=== PATIENT | female | born 1950 | race Caucasian/White ===

== ENCOUNTER 2016-10-10 06:11 | Day surgery (SDC) | payer MEDICARE, MEDICAID ==
[2016-10-10] VITALS (9 sets, daily range): BP systolic 111–135; BP diastolic 0–91; PULSE 68–78; RESP 6–15; O2SAT 98–100
[~2016-10-10] VITALS: Ht 176.5 cm; Wt 46.4 kg
[~2016-10-10 06:11] MED LIST: AMT25T PO; ASPI-973 PO; BENEDRYL PO; BENZ9GEL MM; BISA10SU61 RC; Botulinum Toxin Type-A 100 unit Inj XX ONE; Botulinum Toxin Type-A Inj 200 unit Inj XX ONE; CALC-83 PO; CALC117719 PO; CHOL100045 PO; CIPR-232 PO; DOCU250C2 PO; DULCOLAX PO; ESTR0.5T PO; FOSF3PAC PO; HYD5C TP; HYDR-4003 PO; HYDR25CA PO; LACT1TAB13 PO; LEVE100014 PO; LIDO20SO MM; LISI-571 PO; LORA10CA PO; Levofloxacin 500 mg/100 mL D5W IV ONE; MAG355OR31 PO; MAGN400O4 PO; MULT-620 PO; MYCC TP; NA P133E23 RC; NYST1POW23 MC; PHEN-683 PO; POLY17PO6 PO; SENN-133 PO
[2016-10-10] MEDS ORDERED: fentaNYL-PF 50 mCg/mL 2 mL Inj ONE (06:12)
[2016-10-10] MEDS ORDERED: Dexamethasone 4 mg/mL Inj ONE (06:12)
[2016-10-10] MEDS ORDERED: Propofol 10,000 mCg/mL 20 mL Inj ONE (06:12)
[2016-10-10] MEDS: Lactated Ringer's 1,000 ML IV SCH ×3 (07:02→09:57)
--- NOTE | 2016-10-10 07:02 | PCM.HPANE ---
Patient Data Surgeon Admitting Provider: Attending Provider:Kristan Keller MD Primary Care Physician:Lanie Burgos MD Other Provider:Marquita Booker Anesthesia Reason for Visit Bladder Spasms, Bladder Stone Ht/WT & BMI Height (Feet): 5 Height (Inches): 9.5 Weight (Kilograms): 46.4 Body Mass Index 14.00 Allergies Coded Allergies: latex (Verified Allergy, Severe, contact dermatitis, 10/08/16) Penicillins (Verified Allergy, Unknown, UNKNOWN, 10/08/16) Sulfa (Sulfonamide Antibiotics) (Verified Allergy, Unknown, UNKNOWN, ) clindamycin (Verified Allergy, Unknown, UNKNOWN, 10/08/16) metronidazole (Verified Allergy, Unknown, UNKNOWN, 10/08/16) morphine (Verified Allergy, Unknown, UNKNOWN, 10/08/16) propoxyphene (Verified Allergy, Unknown, UNKNOWN, 10/08/16) Past Anesthesia History Anesthesia History: Denies:: Anesthesia Reactions, Malignant Hyperthermia Diabetes History Hx Diabetes?: No MRSA MRSA: No Medications Blood Thinner: Aspirin Hypertension Medication: No Home Meds Incl Beta Ravi: No Reported Medications Ciprofloxacin (Cipro)250 Mg Ztdzso886 Mg PO BID Ref 0 X 7 DAYS (START 10/07/16) 10/09/16 Fosfomycin Tromethamine (Monurol)3 Gm Packet3 Gm PO WEEKLY X 6 WEEKS (INSTRUCTIONS TO SNF WERE TO GIVE ON 10/09/16 & 10/12/16 WELL) 10/08/16 Polyethylene Glycol 3350 (Miralax)17 Gm Powd.pack17 Gm PO DAILY PRN PRN 10/08/16 Hydrocortisone 120 Applic/30 Gm Cr1 Applic TP BID PRN PRN 0.5-1% 10/08/16 Lactobacillus Acidophilus (Acidophilus)1 Each Tablet1 Each PO BID PRN PRN 10/08/16 Sennosides (Senna)8.6 Mg Eomirc90.2 Mg PO DAILY PRN PRN 10/08/16 Lisinopril 5 Mg Tablet5 Mg PO DAILY #30 TABLET Ref 0 10/08/16 Lidocaine HCl (Lidocaine HCl Viscous)20 Mg/1 Ml Solution5 Ml MM Q3H PRN PRN 10/08/16 Calcium Carbonate (Tums Ultra Strength)1,177 Mg Tab.schx055 Mg PO Q4H PRN PRN 1/25/17 Nystatin 60 Applic/15 Gm Cream1 Applic TP BID PRN PRN 10/08/16 Nystatin 1 Each Powder.ea.1 Each MC DAILY PRN PRN 10/08/16 [Benedryl] No Conflict Check25 Mg PO Q4H PRN PRN 10/08/16 Docusate Sodium 250 Mg Wfqhhbl427 Mg PO BID PRN For Constipation Ref 0 10/08/16 Estradiol 0.5 Mg Tablet0.5 Mg PO DAILY 10/08/16 Na Phos,M-B/Na Phos,Di-Ba (Fleet Enema)133 Ml Sdgsl302 Ml RC DAILY PRN PRN 10/08/16 Aspirin 81 Mg Emxrvr68 Mg PO DAILY Ref 0 10/08/16 Loratadine (Claritin)10 Mg Yulwclc19 Mg PO DAILY Ref 0 10/08/16 Calcium Carb/Vit D3/Minerals (Calcium 600+D Plus Minerals Tb)1 Each Tablet1 Each PO DAILY 10/08/16 Cholecalciferol (Vitamin D3) (Vitamin D)1,000 Unit Capsule1,000 Unit PO DAILY # 1 BOTTLE Ref 0 10/08/16 Levetiracetam (Keppra)1,000 Mg Tablet1,000 Mg PO BID 10/08/16 Bisacodyl (Dulcolax Rectal)10 Mg Supp.rect10 Mg RC DAILY PRN For Constipation 30 Days Ref 0 10/08/16 [Dulcolax ] No Conflict Check1 Tab PO DAILY PRN PRN 10/08/16 Magnesium Hydroxide (Milk of Magnesia)400 Mg/5 Ml Oral.susp30 Ml PO DAILY PRN PRN 10/08/16 Multivitamin with Minerals (Totalday Multiple)1 Each Tablet.er1 Each PO DAILY 10/08/16 Phenazopyridine (Pyridium)100 Mg Fanzzm813 Mg PO TID For Painful Urination Ref 0 10/08/16 Hydroxyzine Pamoate (Vistaril)25 Mg Dcdgwdz26 Mg PO Q4H PRN BLADDER SPASMS Ref 0 10/08/16 Benzocaine (Anbesol)9 Gm Gel..gram.9 Gm MM Q2H PRN PRN 10/08/16 Hydrocodone-Acetaminophen 5-325 mg 1 Each Tablet2 Tablet PO DAILY PRN For Pain Ref 0 10/08/16 Amitriptyline 25 Mg Tab25 Mg PO HS Ref 0 10/08/16 Mag Hydrox/Al Hydrox/Simeth (Antacid M Liquid)355 Ml Oral.susp30 Ml PO Q6H PRN PRN 10/08/16 History History of ENT Problems?: Yes HEENT History: Positive for:: Sinus Problem (SEASONAL ALLERGIES) Hx of Heart Problems?: Yes Cardiovascular History: Positive for:: Hypertension Denies:: Heart Murmur Hx of Respiratory Problem?: No Respiratory History: Denies:: Use of C-PAP Machine Hx Neurologic Problems?: Yes Neurological History: Positive for:: Multiple Sclerosis (DX 20+ YRS AGO/ WHEELCHAIR BOUND W/ SLURRING OF SPEECH) Seizures Hx of GI Problems?: Yes Other GI Pertinent History: C/OF CONSTIPATION Hx of Problems?: Yes Genitourinary History: Positive for:: Kidney Stones (PRIOR STONES-BOTH KIDNEY & BLADDER CURRENT RT STAGHORN CALCULI) Urinary Tract Infection (HX OF UTI'S ) Other Pertinent History: LONG-STANDING USE OF INDWELLING FRAUSTO CATH S/P CYSTO 2013, CYSTO/LITHOLAPAXY 12/2014,CYSTO/STENT/STONE BASKET 02/2015 BLADDER SPASMS/BLADDER STONE=CURRENT PROBLEM Female Hx: Denies:: Currently Skin History: Denies:: History Skin Disorders? Pressure Ulcers Hx Musculoskeletal Problems?: No Hx of Psycho/Social Problems?: No Hx Surgeries?: Yes (CYSTO,CYSTO/LITHOLAPAXY,CYSTO/STENT/STONE BASKET) Hx Any Other Health Problems?: Yes Other History: Positive for:: Hospitalization Denies:: Cancer Thyroid Disease Hx Diabetes: No Have You Smoked inLast 12 mo: No Stop/Bang S-Snoring: Do You Snore Loudly: No T-Tired: feel tired, fatigued: Yes O-Obsered: Observed not breath: No P-Blood Pressure: treated: Yes B- Body Mass Index > 35 kg/m2: No A- Age over 50: Yes N- Neck Large Circumference: No G- Gender Male: No ELIZABETH Total Score: 3 ELIZABETH Risk Assessment: High Risk, =/>3 Yes ELIZABETH Category 4 OutPt Procedure: Yes Risk Assessment Category Category 1A: Patient has history of documented sleep apnea, and HAS NOT received any narcotic, sedative or anesthesia administration during this stay. Category 1B: Patient has history of documented sleep apnea, and HAS received any narcotic , sedative or anesthesia administration during this stay Category 2: Patient has SUSPECTED Obstructive Sleep Apnea, and HAS received any narcotic , sedative or anesthesia administration during this stay. Category 3: Patient has SUSPECTED Obstructive Sleep Apnea and HAS NOT received narcotic, sedative or anesthesia administration during this stay. Category 4: Outpatient in Procedural Areas with known sleep apnea or who screen positive for High Risk via the STOP/BANG questionnaire. Exam Exam Vital Signs Vital Signs Date Time Temp Pulse Resp B/P Pulse Ox O2 Delivery O2 Flow Rate FiO2 10/10/16 06:40 35.4 78 15 135/59 98 Room Air General Appearance: Alert, Oriented X3, Cooperative, No Acute Distress HEENT/AIRWAY: MP 1 Lungs: Normal Air Movement Heart: Exam Unremarkable Plan Impression Patient chart reviewed, patient interviewed and anesthestic plan with risks, benefits, and alternatives discussed, and informed consent obtained. NPO Status: 10/09/16 ASA Physical Status: ASA3 Severe Disease (multiple sclerosis, seizure d/o) Anesthetic Plan: GA Bene/Risks/Altern/Consents: Yes HP Complete Prior to Induction: Yes Eliseo Salazar MD Oct 10, 2016 07:02
[2016-10-10] MEDS ORDERED: Belladonna Alk-Opium 60 mg Rectal Suppository RECTAL ONE (07:04)
[2016-10-10] MEDS ORDERED: levoFLOXacin 500 mg/100 mL D5W Premix IV ONE (07:32)
[2016-10-10] MEDS ORDERED: Botulinum Toxin Type-A 100 unit Inj IM ONE (08:14)
[2016-10-10] MEDS ORDERED: MetoCLOpramide 5 mg/mL 2 mL Inj IVPUSH PRN (08:45)
[2016-10-10] MEDS ORDERED: Albuterol-Ipratropium 3 mL Inhalation Solution NEB PRN (08:45)
[2016-10-10] MEDS ORDERED: Lactated Ringer's 500 ML IV PRN (08:45)
[2016-10-10] MEDS ORDERED: EPHEDrine Sulfate 50 mg/mL Inj IVPUSH PRN (08:45)
[2016-10-10] MEDS ORDERED: Ondansetron 2 mg/mL 2 mL Inj IVPUSH PRN (08:45)
[2016-10-10] MEDS ORDERED: fentaNYL-PF 50 mCg/mL 2 mL Inj IVPUSH PRN (08:45)
[2016-10-10] MEDS ORDERED: Lactated Ringer's 1,000 ML IV SCH (08:45)
[2016-10-10] MEDS ORDERED: Phenylephrine 10,000 mCg/mL Inj IVPUSH PRN (08:45)
[2016-10-10] MEDS ORDERED: Dexamethasone 4 mg/mL Inj IVPUSH PRN (08:45)
[2016-10-10] MEDS ORDERED: Gentamicin 40 mg/mL 2 mL Inj IRRIGATION ONE ×2 (08:56→09:16)
[2016-10-10] MEDS ORDERED: HYDROcodone-APAP 5-325 mg Tablet PO PRN (09:40)
[2016-10-10] MEDS ORDERED: Ondansetron 8 mg ODT Tablet PO PRN (09:40)
[2016-10-10] MEDS ORDERED: Belladonna Alk-Opium 60 mg Rectal Suppository RECTAL PRN (09:40)
--- NOTE | 2016-10-10 10:22 | PCM.ANEP1 ---
Post Anesthesia Phase 1 PACU Phase 1 Assessment Vital Signs Vital Signs Date Time Temp Pulse Resp B/P Pulse Ox O2 Delivery O2 Flow Rate FiO2 10/10/16 10:09 69 10 113/68 100 Room Air 10/10/16 10:02 68 8 114/68 100 Room Air 10/10/16 09:55 76 8 119/0 100 Room Air 10/10/16 09:50 71 8 127/91 100 Room Air 10/10/16 09:45 75 8 111/51 99 Room Air 10/10/16 09:40 73 6 125/51 98 Room Air 10/10/16 09:35 36.3 74 7 128/45 99 Room Air 10/10/16 06:40 35.4 78 15 135/59 98 Room Air Anesthetic Administered: GA Level of Alertness: Awake, talking JAY's with Equal Strength: Yes Pain: No Nausea or Vomiting: No Oxygen Delivery: Room Air Lungs: Normal Air Movement Eliseo Salazar MD Oct 10, 2016 10:22
--- NOTE | 2016-10-10 10:23 | PCM.ANEP2 ---
Post Anesthesia Evaluation ASA/CMS Post Anesthesia VS in Patient's Normal Range?: Yes Resp Stable; Airway Patent?: Yes CV Function & Hydration Stable: Yes Mental Status Recovered?: Yes Pain control Satisfactory?: Yes N/V Control Satisfactory?: Yes Eliseo Salazar MD Oct 10, 2016 10:23
--- NOTE | 2016-10-12 00:17 | OP ---
[address] [address] OPERATIVE REPORT PATIENT: ZAFAR NUNEZ : 1950 MR#: [id number] ADMIT: 10/10/2016 JOB ID: [id number] DATE OF SURGERY: 10/10/2016 PREOPERATIVE DIAGNOSIS(ES): 1. Bladder stone. 2. Neurogenic bladder with spasticity. 3. Recurrent urinary tract infection. POSTOPERATIVE DIAGNOSIS(ES): 1. Bladder stone. 2. Neurogenic bladder with spasticity. 3. Recurrent urinary tract infection. PROCEDURE: 1 Cystolitholapaxy 2 cm stone as well as 2 Botox injection and 3 gentamicin bladder installation. SURGEON: Kristan Keller MD INDICATIONS: The patient is a 66-year-old woman with longstanding history of severe progressive MS, immobile, recurrent urinary tract infections, bladder stones, nephrolithiasis, neurogenic bladder and bladder stone, found once again to have recurrent bladder stone as well as ongoing bladder spasticity despite full dose anticholinergic therapy, elective Botox as well as cystolitholapaxy. PROCEDURE IN DETAIL: After appropriate informed consent was obtained, the patient was brought to the operating room. She received IV antibiotics culture specific prior to onset of the procedure. She had been on oral antibiotics as well, culture directed. SCDs were placed. Adequate general anesthesia was induced. She was carefully placed in dorsal lithotomy position. All pressure points carefully padded. Cleaned, prepped, and draped in the usual sterile fashion. Rigid scope was introduced in the patient's bladder. The bladder stone itself was identified. We used the 25-Czech sheath. We were able to use the mechanical lithotrite to break this up. We irrigated the pieces out with the SupportLocal evacuator. This was approximately a 2 cm stone in greatest dimension. Once this was accomplished, we used 200 units of Botox in 20 mL of sterile normal saline which were injected, scattered easily throughout the bladder in 1 mL aliquots. There was mild hematuria. The bladder itself was irrigated out copiously with antibiotic solution with gentamicin which was culture specific directed. Gentamicin was also instilled at the termination of the procedure and darke clamped briefly to allow to dwell. An 18-Czech, latex-free catheter was replaced. The patient tolerated the procedure well and was returned to the one-day surgery area prior to discharge back to her assisted. [facility]
[2016-11-18] MEDS ORDERED: LACT1CAP13 PO (15:16)
== END 2016-10-10 23:59 | disposition home or self-care (01) ==
LOC: SAS 06:11
PROVIDERS: ATTEND Urology
DX: N21.0 Calculus in bladder (principal); N31.9 Neuromuscular dysfunction of bladder, unspecified; N32.89 Other specified disorders of bladder; G35 Multiple sclerosis; N39.0 Urinary tract infection, site not specified; Z99.3 Dependence on wheelchair; Z87.442 Personal history of urinary calculi; N39.41 Urge incontinence; R33.9 Retention of urine, unspecified; N20.0 Calculus of kidney; Z79.82 Long term (current) use of aspirin
CPT/HCPCS: 51700; 52287; 52317; J0585; J1100; J1580; J7120

== ENCOUNTER 2016-11-06 08:56 | Day surgery (SDC) | payer MEDICARE, MEDICAID ==
[~2016-11-06] VITALS: Ht 165.1 cm; Wt 47.7 kg
[2016-11-06] VITALS (8 sets, daily range): BP systolic 95–118; BP diastolic 55–75; PULSE 66–79; RESP 13–18; O2SAT 97–100
[~2016-11-06 08:56] MED LIST changes: -Botulinum Toxin Type-A 100 unit Inj XX ONE; -Botulinum Toxin Type-A Inj 200 unit Inj XX ONE
[2016-11-06] MEDS ORDERED: Propofol 10,000 mCg/mL 20 mL Inj ONE (08:57)
[2016-11-06] MEDS ORDERED: Phenylephrine/NS 100 mCg/mL 10 mL Syringe IVPUSH ONE (08:57)
[2016-11-06] MEDS ORDERED: fentaNYL-PF 50 mCg/mL 2 mL Inj ONE (08:57)
[2016-11-06] MEDS ORDERED: Dexamethasone 4 mg/mL Inj ONE (08:57)
[2016-11-06] MEDS ORDERED: Ondansetron 2 mg/mL 2 mL Inj ONE (08:57)
[2016-11-06] MEDS: Lactated Ringer's 1,000 ML IV SCH ×2 (09:01→10:45)
--- NOTE | 2016-11-06 10:16 | PCM.HPANE ---
Patient Data Date of Service: Nov 06, 2016 Surgeon Admitting Provider: Attending Provider:Donna Springer MD Primary Care Physician:Lanie Burgos MD Other Provider:Marquita Booker Anesthesia Reason for Visit Right Kidney Stone Ht/WT & BMI Height (Feet): 5 Height (Inches): 5 Height (Centimeters): 165.1 Weight (Kilograms): 47.7 Body Mass Index 17.00 Allergies Coded Allergies: latex (Verified Allergy, Severe, contact dermatitis, 10/08/16) Penicillins (Verified Allergy, Unknown, UNKNOWN, 10/08/16) Sulfa (Sulfonamide Antibiotics) (Verified Allergy, Unknown, UNKNOWN, ) clindamycin (Verified Allergy, Unknown, UNKNOWN, 10/08/16) metronidazole (Verified Allergy, Unknown, UNKNOWN, 10/08/16) morphine (Verified Allergy, Unknown, UNKNOWN, 10/08/16) propoxyphene (Verified Allergy, Unknown, UNKNOWN, 10/08/16) Past Anesthesia History Anesthesia History: Denies:: Anesthesia Reactions, Malignant Hyperthermia Diabetes History Hx Diabetes?: No MRSA MRSA: No Medications Blood Thinner: Aspirin Home Meds Incl Beta Ravi: No Reported Medications Ciprofloxacin (Cipro)250 Mg Mqndmi736 Mg PO BID Ref 0 X 7 DAYS (START 10/07/16) 10/09/16 Fosfomycin Tromethamine (Monurol)3 Gm Packet3 Gm PO WEEKLY X 6 WEEKS (INSTRUCTIONS TO SNF WERE TO GIVE ON 10/09/16 & 10/12/16 WELL) 10/08/16 Polyethylene Glycol 3350 (Miralax)17 Gm Powd.pack17 Gm PO DAILY PRN PRN 10/08/16 Hydrocortisone 120 Applic/30 Gm Cr1 Applic TP BID PRN PRN 0.5-1% 10/08/16 Lactobacillus Acidophilus (Acidophilus)1 Each Tablet1 Each PO BID PRN PRN 10/08/16 Sennosides (Senna)8.6 Mg Asfjzv89.2 Mg PO DAILY PRN PRN 10/08/16 Lisinopril 5 Mg Tablet5 Mg PO DAILY #30 TABLET Ref 0 10/08/16 Lidocaine HCl (Lidocaine HCl Viscous)20 Mg/1 Ml Solution5 Ml MM Q3H PRN PRN 10/08/16 Calcium Carbonate (Tums Ultra Strength)1,177 Mg Tab.thrq072 Mg PO Q4H PRN PRN 10/08/16 Nystatin 60 Applic/15 Gm Cream1 Applic TP BID PRN PRN 10/08/16 Nystatin 1 Each Powder.ea.1 Each MC DAILY PRN PRN 10/08/16 [Benedryl] No Conflict Check25 Mg PO Q4H PRN PRN 10/08/16 Docusate Sodium 250 Mg Cnxbkvq768 Mg PO BID PRN For Constipation Ref 0 10/08/16 Estradiol 0.5 Mg Tablet0.5 Mg PO DAILY 10/08/16 Na Phos,M-B/Na Phos,Di-Ba (Fleet Enema)133 Ml Ekptt402 Ml RC DAILY PRN PRN 10/08/16 Aspirin 81 Mg Yyzlqa98 Mg PO DAILY Ref 0 10/08/16 Loratadine (Claritin)10 Mg Brjfshm86 Mg PO DAILY Ref 0 10/08/16 Calcium Carb/Vit D3/Minerals (Calcium 600+D Plus Minerals Tb)1 Each Tablet1 Each PO DAILY 10/08/16 Cholecalciferol (Vitamin D3) (Vitamin D)1,000 Unit Capsule1,000 Unit PO DAILY # 1 BOTTLE Ref 0 10/08/16 Levetiracetam (Keppra)1,000 Mg Tablet1,000 Mg PO BID 10/08/16 Bisacodyl (Dulcolax Rectal)10 Mg Supp.rect10 Mg RC DAILY PRN For Constipation 30 Days Ref 0 10/08/16 [Dulcolax ] No Conflict Check1 Tab PO DAILY PRN PRN 10/08/16 Magnesium Hydroxide (Milk of Magnesia)400 Mg/5 Ml Oral.susp30 Ml PO DAILY PRN PRN 10/08/16 Multivitamin with Minerals (Totalday Multiple)1 Each Tablet.er1 Each PO DAILY 10/08/16 Phenazopyridine (Pyridium)100 Mg Kjxdje495 Mg PO TID For Painful Urination Ref 0 10/08/16 Hydroxyzine Pamoate (Vistaril)25 Mg Aycwvkg24 Mg PO Q4H PRN BLADDER SPASMS Ref 0 10/08/16 Benzocaine (Anbesol)9 Gm Gel..gram.9 Gm MM Q2H PRN PRN 10/08/16 Hydrocodone-Acetaminophen 5-325 mg 1 Each Tablet2 Tablet PO DAILY PRN For Pain Ref 0 10/08/16 Amitriptyline 25 Mg Tab25 Mg PO HS Ref 0 10/08/16 Mag Hydrox/Al Hydrox/Simeth (Antacid M Liquid)355 Ml Oral.susp30 Ml PO Q6H PRN PRN 10/08/16 History History of ENT Problems?: Yes HEENT History: Positive for:: Sinus Problem (SEASONAL ALLERGIES) Hx of Heart Problems?: Yes Cardiovascular History: Positive for:: Hypertension Denies:: Heart Murmur Hx of Respiratory Problem?: No Respiratory History: Denies:: Use of C-PAP Machine Hx Neurologic Problems?: Yes Neurological History: Positive for:: Multiple Sclerosis (DX 20+ YRS AGO/ WHEELCHAIR BOUND W/ SLURRING OF SPEECH) Seizures Hx of GI Problems?: Yes Hx of Problems?: Yes Genitourinary History: Positive for:: Kidney Stones (PRIOR STONES-BOTH KIDNEY & BLADDER CURRENT RT STAGHORN CALCULI) Urinary Tract Infection (HX OF UTI'S ) Female Hx: Denies:: Currently Skin History: Denies:: History Skin Disorders? Pressure Ulcers Hx Musculoskeletal Problems?: No Hx of Psycho/Social Problems?: No Hx Surgeries?: Yes (CYSTO,CYSTO/LITHOLAPAXY,CYSTO/STENT/STONE BASKET) Hx Any Other Health Problems?: Yes Other History: Positive for:: Hospitalization Denies:: Cancer Thyroid Disease Hx Diabetes: No Smoking Status: Never Smoker Have You Smoked inLast 12 mo: No Stop/Bang S-Snoring: Do You Snore Loudly: No T-Tired: feel tired, fatigued: No O-Obsered: Observed not breath: No P-Blood Pressure: treated: Yes B- Body Mass Index > 35 kg/m2: No A- Age over 50: Yes N- Neck Large Circumference: No G- Gender Male: No ELIZABETH Risk Assessment: Low Risk, <3 Yes Risk Assessment Category Category 1A: Patient has history of documented sleep apnea, and HAS NOT received any narcotic, sedative or anesthesia administration during this stay. Category 1B: Patient has history of documented sleep apnea, and HAS received any narcotic , sedative or anesthesia administration during this stay Category 2: Patient has SUSPECTED Obstructive Sleep Apnea, and HAS received any narcotic , sedative or anesthesia administration during this stay. Category 3: Patient has SUSPECTED Obstructive Sleep Apnea and HAS NOT received narcotic, sedative or anesthesia administration during this stay. Category 4: Outpatient in Procedural Areas with known sleep apnea or who screen positive for High Risk via the STOP/BANG questionnaire. Exam Exam Vital Signs Vital Signs Date Time Temp Pulse Resp B/P Pulse Ox O2 Delivery O2 Flow Rate FiO2 11/06/16 09:26 36 79 16 118/60 99 Room Air General Appearance: Alert, Oriented X3, Cooperative, No Acute Distress HEENT/AIRWAY: MP 1, Neck Movement (limited) Lungs: Clear to Auscultation, Normal Air Movement Heart: Exam Unremarkable, Regular Rate/Rhythm, No Murmurs/Rubs/Gallops Additional Information patient extremely weak on left side of body, normal strength on right Meds/Labs/Diagnostics Admission Meds Current Medications Lactated Ringer's (Lr) 1,000 ml @ 120 mls/hr Q8H20M IV Last administered on t 09:01; Start 11/06/16 at 05:00; Stop 11/06/16 at 13:19 Plan Impression Patient chart reviewed, patient interviewed and anesthestic plan with risks, benefits, and alternatives discussed, and informed consent obtained. NPO Status: 11/05/16 ASA Physical Status: ASA3 Severe Disease (severe MS) Anesthetic Plan: GA Bene/Risks/Altern/Consents: Yes HP Complete Prior to Induction: Yes Javier Sexton MD Nov 06, 2016 10:16
[2016-11-06] MEDS ORDERED: Lactated Ringer's 1,000 ML IV SCH (11:16)
[2016-11-06] MEDS ORDERED: Lactated Ringer's 500 ML IV PRN (11:16)
[2016-11-06] MEDS ORDERED: Phenylephrine 10,000 mCg/mL Inj IVPUSH PRN (11:20)
[2016-11-06] MEDS ORDERED: Atropine 0.4 mg/mL Inj IVPUSH PRN (11:20)
[2016-11-06] MEDS ORDERED: EPHEDrine Sulfate 50 mg/mL Inj IVPUSH PRN (11:20)
[2016-11-06] MEDS ORDERED: EPHEDrine Sulfate 50 mg/mL Inj IM PRN (11:20)
[2016-11-06] MEDS ORDERED: Ondansetron 2 mg/mL 2 mL Inj IVPUSH PRN (11:20)
[2016-11-06] MEDS ORDERED: HYDROmorphone 1 mg/mL Inj IVPUSH PRN (11:20)
[2016-11-06] MEDS ORDERED: Labetalol 5 mg/mL 4 mL Inj IV PRN (11:20)
[2016-11-06] MEDS ORDERED: fentaNYL-PF 50 mCg/mL 2 mL Inj IVPUSH PRN (11:20)
[2016-11-06] MEDS ORDERED: HYDROcodone-APAP 5-325 mg Tablet PO PRN (11:45)
--- NOTE | 2016-11-06 12:18 | PCM.ANEP1 ---
Post Anesthesia Phase 1 PACU Phase 1 Assessment Date of Service: Nov 06, 2016 Vital Signs Vital Signs Date Time Temp Pulse Resp B/P Pulse Ox O2 Delivery O2 Flow Rate FiO2 11/06/16 12:05 36 72 16 108/60 99 Room Air 11/06/16 12:00 36.0 70 15 108/60 97 Room Air 11/06/16 11:55 69 18 101/66 98 Room Air 11/06/16 11:50 66 17 106/55 100 Simple Mask 7 11/06/16 11:45 70 14 110/60 100 Simple Mask 7 11/06/16 11:40 72 13 105/56 100 Simple Mask 7 11/06/16 11:37 36.4 95/75 11/06/16 09:26 36 79 16 118/60 99 Room Air Anesthetic Administered: GA Level of Alertness: Awake, talking JAY's with Equal Strength: No (baseline weakness on left) Pain: No Nausea or Vomiting: No Oxygen Delivery: Room Air Lungs: Clear to Auscultation, Normal Air Movement Dermatome Level: Full Sensation Javier Sexton MD Nov 06, 2016 12:18
--- NOTE | 2016-11-06 13:44 | DRSVH ---
PROCEDURE: X-RAY KUB ([id number]) INDICATIONS: LEFT KIDNEY STONE TECHNIQUE: One view of the abdomen acquired. COMPARISON: [facility], CR, XR KUB, 09/24/2016, 12:47. FINDINGS: Surgical changes and devices: Cholecystectomy clips.. Bowel: Bowel gas pattern is normal. Soft tissues: Large 3.5 x 4.2 cm right renal staghorn calculus is noted. Curvilinear densities projec t over the lower pelvis seen previously are not identified. Visualized solid organ contours appear no rmal in size. Bones: No suspicious bony lesions. IMPRESSION: Large right renal staghorn calculus redemonstrated. Dictated by: Addy DE LUNA Interpreted: Maria Eugenia Beasley MD on 11/06/2016 at 13:15 Transcribed by: MANISHA on 11/06/2016 at 13:16 Approved by: Maria Eugenia Beasley M.D. on 11/06/2016 at 17:00
--- NOTE | 2016-11-06 13:45 | OP ---
[address] [address] OPERATIVE REPORT PATIENT: ZAFAR NUNEZ : 1950 MR#: [id number] ADMIT: 11/06/2016 JOB ID: [id number] DATE OF SURGERY: 11/06/2016 SURGEON: Donna Springer MD PREOPERATIVE DIAGNOSIS(ES): Right staghorn calculus. POSTOPERATIVE DIAGNOSIS(ES): Right staghorn calculus. PROCEDURE: Cystoscopy, right stent placement, right extracorporeal shock wave lithotripsy. ANESTHESIA: General anesthetic, Dr. Child. DESCRIPTION OF PROCEDURE: Under general anesthetic, the patient was placed in lithotomy position. Genitalia prepped and draped in a sterile manner. A 22-Barbadian cystoscope was introduced through a patulous urethra. A 0.035 Glidewire was advanced to the level of the right renal pelvis. A 6-Barbadian 22 cm double-J stent was then passed over the wire. When it was confirmed to be in good position fluoroscopically, the string was cut and removed and the wire withdrawn. The patient was transferred to the supine position for right ESWL. The stone was easily visualized fluoroscopically. A total of 1500 shocks were delivered to the renal pelvic portion of the stone with no change whatsoever in the stone. Unsuccessful right ESWL. Given how little change there was in the stone today, I will be recommending a percutaneous nephrolithotomy.
--- NOTE | 2016-11-06 14:40 | PCM.ANEP2 ---
Post Anesthesia Evaluation ASA/CMS Post Anesthesia Date of Service: Nov 06, 2016 VS in Patient's Normal Range?: Yes Resp Stable; Airway Patent?: Yes CV Function & Hydration Stable: Yes Mental Status Recovered?: Yes Pain control Satisfactory?: Yes N/V Control Satisfactory?: Yes Javier Sexton MD Nov 06, 2016 14:40
[2016-11-18] MEDS ORDERED: LACT1CAP13 PO (15:16)
== END 2016-11-06 23:59 | disposition home or self-care (01) ==
LOC: SAS 08:56
PROVIDERS: ATTEND Urology
DX: N20.0 Calculus of kidney (principal); I10 Essential (primary) hypertension; G35 Multiple sclerosis; N31.9 Neuromuscular dysfunction of bladder, unspecified; G40.909 Epilepsy, unspecified, not intractable, without status epilepticus; Z79.82 Long term (current) use of aspirin; Z99.3 Dependence on wheelchair; Z87.440 Personal history of urinary (tract) infections; Z87.448 Personal history of other diseases of urinary system
CPT/HCPCS: 50590; 52332; 74000; C2617; J1100; J2370; J2405; J3010; J7120

== ENCOUNTER 2016-11-19 06:00 | Day surgery (SDC) | payer MEDICARE, MEDICAID ==
[~2016-11-19 06:00] MED LIST changes: -AMT25T PO; -CHOL100045 PO; -CIPR-232 PO; -DULCOLAX PO; -LIDO20SO MM; -Levofloxacin 500 mg/100 mL D5W IV ONE
[2016-11-19] MEDS ORDERED: AMT25T PO (06:46)
[2016-11-19] MEDS ORDERED: HYDR-656 PO (07:54)
[2016-11-19] MEDS ORDERED: Propofol 10,000 mCg/mL 20 mL Inj ONE ×2 (09:00→13:51)
[2016-11-19] MEDS ORDERED: fentaNYL-PF 50 mCg/mL 2 mL Inj ONE (13:51)
[2016-11-19] MEDS ORDERED: Ondansetron 2 mg/mL 2 mL Inj ONE (13:51)
[2016-11-19] MEDS ORDERED: Rocuronium 10 mg/mL 5 mL Inj ONE (13:51)
[2016-11-19] MEDS ORDERED: Dexamethasone 4 mg/mL Inj ONE (13:51)
[2016-11-19] MEDS ORDERED: Neostigmine 1 mg/mL 10 mL Inj ONE (13:51)
--- NOTE | 2016-11-21 09:35 | DRSVH ---
PROCEDURE: NEPHROSTOMY WIRE PLACEMENT (P) 1. Right nephrostomy tube placement. 2. Right antegrade pyelogram. 3. Fluoroscopic guidance for renal access. 4. Sedation provided by anesthesiology. INDICATIONS: KIDNEY STONES TECHNIQUE: The indications, alternatives, benefits, risks, and complications of the procedure were e xplained to the patient and any family members present. Informed written consent was obtained and pl aced in the chart. The patient was brought to the angiography suite. Sedation was provided by the an esthesiology service. The patient was placed in the oblique position on the angiography table. The back was prepped and dr aped in a sterile fashion, with 1% lidocaine used for local anaesthesia. A right interpolar posterio r renal calyx was accessed using fluoroscopic guidance with an Accustick set. A small amount of cont rast was injected through the Accustick needle for an antegrade pyelogram. An 0.018 Mandrill wire wa s advanced into the renal pelvis and exchanged for an Accustick dilator/sheath. A 035 wire was advan gisela into the proximal to mid ureter. The wire and AccuStick sheath were secured to the skin surface w ith an adhesive bandage. The patient was stable during the course of the procedure. FLUOROSCOPY TIME: 24.4 minutes. COMPARISON: [facility], CR, XR NEPHRO TUBE REMOVAL W INJ, 11/20/2016, 13:32. FINDINGS: A large staghorn calculus was visualized within the upper and midpole of the left kidney. A t the conclusion of the procedure, the AccuStick sheath is within the renal pelvis and a wire is pres ent within the right ureter with the tip in the bladder. IMPRESSION: Successful placement of a right-sided AccuStick sheath and nephroureteral wire. Dictated by: Mirela Hodgson M.D. on 11/21/2016 at 9:26 Approved by: Mirela Hodgson M.D. on 11/21/2016 at 9:29
== END 2016-11-19 23:59 | disposition home or self-care (01) ==
LOC: SOUO 06:00
PROVIDERS: ATTEND Radiology Vascular & Interventional Radiology
DX: N20.0 Calculus of kidney (principal)
CPT/HCPCS: J1100; J3010

== ENCOUNTER 2016-11-19 06:00 | Inpatient (IN) | payer MEDICARE, MEDICAID ==
[~2016-11-19] VITALS: Ht 165.1 cm; Wt 49.5 kg
[2016-11-19] VITALS (12 sets, daily range): BP systolic 105–148; BP diastolic 41–92; PULSE 79–111; RESP 13–20; O2SAT 92–100
[2016-11-19] MEDS: Lactated Ringer's 1,000 ML IV SCH ×4 (05:00→12:45)
[~2016-11-19 06:00] MED LIST changes: +cefTRIAXone Inj 1,000 MG in Dextrose 5% Minibag Plus 50 ML IV ONE
[2016-11-19] MEDS ORDERED: AMT25T PO (06:46)
[2016-11-19 06:58] LABS: Mean Corpuscular Hemoglobin 28.4 pg (27.0-35.0); Mean Corpuscular Volume 87.6 fL (81-100)
[2016-11-19 07:15] LABS: INR 0.93 ratio
[2016-11-19] MEDS ORDERED: HYDR-656 PO (07:54)
[2016-11-19] MEDS ORDERED: Heparin 1,000 Unit/mL 10 mL Inj ONE (08:11)
[2016-11-19] MEDS ORDERED: 0.9% Sodium Chloride 1,000 ML ONE (08:11)
--- NOTE | 2016-11-19 10:30 | PCM.ANEP1 ---
Post Anesthesia Phase 1 PACU Phase 1 Assessment Vital Signs Vital Signs Date Time Temp Pulse Resp B/P Pulse Ox O2 Delivery O2 Flow Rate FiO2 11/19/16 06:31 36.0 87 20 132/67 98 Room Air Anesthetic Administered: MAC Level of Alertness: Awake, talking JAY's with Equal Strength: Yes Pain: No Nausea or Vomiting: No Oxygen Delivery: Room Air Lungs: Clear to Auscultation Dermatome Level: Full Sensation Aj Miguel MD Nov 19, 2016 10:30
[2016-11-19] MEDS: fentaNYL-PF 50 mCg/mL 2 mL Inj ONE ×2 (11:17→11:25)
[2016-11-19] MEDS ORDERED: Gentamicin 40 mg/mL 2 mL Inj INJ ONE (13:16)
[2016-11-19] MEDS ORDERED: hydrALAZINE 20 mg/mL Inj IVPUSH PRN (13:25)
[2016-11-19] MEDS ORDERED: EPHEDrine Sulfate 50 mg/mL Inj IVPUSH PRN (13:25)
[2016-11-19] MEDS ORDERED: Lactated Ringer's 500 ML IV PRN (13:25)
[2016-11-19] MEDS ORDERED: Labetalol 5 mg/mL 4 mL Inj IV PRN (13:25)
[2016-11-19] MEDS ORDERED: Phenylephrine 10,000 mCg/mL Inj IVPUSH PRN (13:25)
[2016-11-19] MEDS ORDERED: Dexamethasone 4 mg/mL Inj IVPUSH PRN (13:25)
[2016-11-19] MEDS ORDERED: Lactated Ringer's 1,000 ML IV SCH (13:25)
[2016-11-19] MEDS ORDERED: fentaNYL-PF 50 mCg/mL 2 mL Inj IVPUSH PRN ×2 (13:25→14:45)
[2016-11-19] MEDS ORDERED: MetoCLOpramide 5 mg/mL 2 mL Inj IVPUSH PRN ×2 (13:25→14:45)
[2016-11-19] MEDS ORDERED: Ondansetron 2 mg/mL 2 mL Inj IVPUSH PRN ×2 (13:25→14:45)
--- NOTE | 2016-11-19 13:37 | PCM.HPANE ---
Patient Data Date of Service: Nov 19, 2016 Surgeon Admitting Provider: Attending Provider:Donna Springer MD Primary Care Physician:Lanie Burgos MD Other Provider:Marquita Booker Anesthesia Reason for Visit Right Kidney Stone Ht/WT & BMI Height (Feet): 5 Height (Inches): 5.00 Weight (Kilograms): 56 Body Mass Index 20.00 Allergies Coded Allergies: latex (Verified Allergy, Severe, contact dermatitis, 11/18/16) Penicillins (Verified Allergy, Unknown, UNKNOWN, 11/18/16) Sulfa (Sulfonamide Antibiotics) (Verified Allergy, Unknown, UNKNOWN, ) clindamycin (Verified Allergy, Unknown, UNKNOWN, 11/18/16) metronidazole (Verified Allergy, Unknown, UNKNOWN, 11/18/16) morphine (Verified Allergy, Unknown, UNKNOWN, 11/18/16) propoxyphene (Verified Allergy, Unknown, UNKNOWN, 11/18/16) Past Anesthesia History Anesthesia History: Denies:: Anesthesia Reactions, Malignant Hyperthermia Diabetes History Hx Diabetes?: No MRSA MRSA: No Medications Blood Thinner: Aspirin Hypertension Medication: Yes (LISINOPORIL) Home Meds Incl Beta Ravi: No Reported Medications hydrOXYzine Hcl (HydrOXYzine Hcl)25 Mg Scotlq70 Mg PO HS PRN BLADDER SPASMS 11/19/16 Amitriptyline 25 Mg Tab25 Mg PO DAILY BLADDER SPASM Ref 0 11/19/16 Fosfomycin Tromethamine (Monurol)3 Gm Packet3 Gm PO WEEKLY X 6 WEEKS (INSTRUCTIONS TO SNF WERE TO GIVE ON 10/09/16 & 10/12/16 WELL) 10/08/16 Hydrocortisone 120 Applic/30 Gm Cr1 Applic TP BID PRN PRN 0.5-1% 10/08/16 Lactobacillus Acidophilus (Acidophilus)1 Each Tablet1 Each PO BID PRN PRN 10/08/16 Sennosides (Senna)8.6 Mg Qundaf06.2 Mg PO DAILY PRN PRN 10/08/16 Lisinopril 5 Mg Tablet5 Mg PO DAILY #30 TABLET Ref 0 10/08/16 Calcium Carbonate (Tums Ultra Strength)1,177 Mg Tab.gmjo082 Mg PO Q4H PRN PRN 10/08/16 Nystatin 1 Each Powder.ea.1 Each MC DAILY PRN PRN 10/08/16 [Benedryl] No Conflict Check25 Mg PO Q4H PRN PRN 10/08/16 Docusate Sodium 250 Mg Ckagjyz484 Mg PO BID PRN For Constipation Ref 0 10/08/16 Estradiol 0.5 Mg Tablet0.5 Mg PO DAILY 10/08/16 Na Phos,M-B/Na Phos,Di-Ba (Fleet Enema)133 Ml Bnfhn209 Ml RC DAILY PRN PRN 10/08/16 Loratadine (Claritin)10 Mg Dapzhiw72 Mg PO DAILY Ref 0 10/08/16 Calcium Carb/Vit D3/Minerals (Calcium 600+D Plus Minerals Tb)1 Each Tablet1 Each PO DAILY 10/08/16 Levetiracetam (Keppra)1,000 Mg Tablet1,000 Mg PO BID 10/08/16 Bisacodyl (Dulcolax Rectal)10 Mg Supp.rect10 Mg RC DAILY PRN For Constipation 30 Days Ref 0 10/08/16 Magnesium Hydroxide (Milk of Magnesia)400 Mg/5 Ml Oral.susp30 Ml PO DAILY PRN PRN 10/08/16 Multivitamin with Minerals (Totalday Multiple)1 Each Tablet.er1 Each PO DAILY 10/08/16 Phenazopyridine (Pyridium)100 Mg Mcpyrv699 Mg PO TID For Painful Urination Ref 0 10/08/16 Benzocaine (Anbesol)9 Gm Gel..gram.9 Gm MM Q2H PRN PRN 10/08/16 Hydrocodone-Acetaminophen 5-325 mg 1 Each Tablet2 Tablet PO DAILY PRN For Pain Ref 0 10/08/16 Mag Hydrox/Al Hydrox/Simeth (Antacid M Liquid)355 Ml Oral.susp30 Ml PO Q6H PRN PRN 10/08/16 Discontinued Reported Medications Polyethylene Glycol 3350 (Miralax)17 Gm Powd.pack17 Gm PO DAILY PRN PRN 10/08/16 Nystatin 60 Applic/15 Gm Cream1 Applic TP BID PRN PRN 10/08/16 Aspirin 81 Mg Eiwgun98 Mg PO DAILY Ref 0 10/08/16 Hydroxyzine Pamoate (Vistaril)25 Mg Rlwvocb23 Mg PO Q4H PRN BLADDER SPASMS Ref 0 10/08/16 Lactobacillus Acidophilus (Acidophilus)1 Each Capsule1 Each PO DAILY 3/7/17 Ciprofloxacin (Cipro)250 Mg Tfbpxm588 Mg PO BID Ref 0 X 7 DAYS (START 10/07/16) 10/09/16 Lidocaine HCl (Lidocaine HCl Viscous)20 Mg/1 Ml Solution5 Ml MM Q3H PRN PRN 10/08/16 Cholecalciferol (Vitamin D3) (Vitamin D)1,000 Unit Capsule1,000 Unit PO DAILY # 1 BOTTLE Ref 0 10/08/16 [Dulcolax ] No Conflict Check1 Tab PO DAILY PRN PRN 10/08/16 Amitriptyline 25 Mg Tab25 Mg PO HS Ref 0 10/08/16 History History of ENT Problems?: Yes HEENT History: Positive for:: Sinus Problem (SEASONAL ALLERGIES) Hx of Heart Problems?: Yes Cardiovascular History: Positive for:: Hypertension Denies:: Heart Murmur Hx of Respiratory Problem?: No Respiratory History: Denies:: Use of C-PAP Machine Hx Neurologic Problems?: Yes Neurological History: Positive for:: Multiple Sclerosis (DX 20+ YRS AGO/ WHEELCHAIR BOUND W/ SLURRING OF SPEECH) Seizures Hx of GI Problems?: No Hx of Problems?: Yes Genitourinary History: Positive for:: Kidney Stones (PRIOR STONES-BOTH KIDNEY & BLADDER CURRENT RT STAGHORN CALCULI) Urinary Tract Infection (HX OF UTI'S ) Female Hx: Denies:: Currently Skin History: Denies:: History Skin Disorders? Pressure Ulcers Hx Musculoskeletal Problems?: Yes Musculoskeletal History: Positive for:: Osteoarthritis (limited range of motion of neck) Hx of Psycho/Social Problems?: No Hx Surgeries?: Yes (CYSTO,CYSTO/LITHOLAPAXY,CYSTO/STENT/STONE BASKET) Hx Any Other Health Problems?: Yes Other History: Positive for:: Hospitalization Denies:: Cancer Endocrine Disease Thyroid Disease Hx Diabetes: No Hx Alcohol Use: NoHx Substance Use: No Smoking Status: Never Smoker Have You Smoked inLast 12 mo: No Stop/Bang S-Snoring: Do You Snore Loudly: No T-Tired: feel tired, fatigued: Yes O-Obsered: Observed not breath: No P-Blood Pressure: treated: Yes B- Body Mass Index > 35 kg/m2: No A- Age over 50: Yes N- Neck Large Circumference: No G- Gender Male: No ELIZABETH Total Score: 3 ELIZABETH Risk Assessment: Low Risk, <3 Yes Risk Assessment Category Category 1A: Patient has history of documented sleep apnea, and HAS NOT received any narcotic, sedative or anesthesia administration during this stay. Category 1B: Patient has history of documented sleep apnea, and HAS received any narcotic , sedative or anesthesia administration during this stay Category 2: Patient has SUSPECTED Obstructive Sleep Apnea, and HAS received any narcotic , sedative or anesthesia administration during this stay. Category 3: Patient has SUSPECTED Obstructive Sleep Apnea and HAS NOT received narcotic, sedative or anesthesia administration during this stay. Category 4: Outpatient in Procedural Areas with known sleep apnea or who screen positive for High Risk via the STOP/BANG questionnaire. Exam Exam Vital Signs Vital Signs Date Time Temp Pulse Resp B/P Pulse Ox O2 Delivery O2 Flow Rate FiO2 11/19/16 11:00 36.4 79 18 130/64 100 Room Air 11/19/16 10:35 36.3 85 16 124/92 95 Room Air 11/19/16 10:30 Room Air 11/19/16 06:31 36.0 87 20 132/67 98 Room Air General Appearance: Alert, Oriented X3, Cooperative, No Acute Distress HEENT/AIRWAY: MP 1, Neck Movement (Great airway except she can't move her neck much) Lungs: Clear to Auscultation, Normal Air Movement Heart: Exam Unremarkable, Regular Rate/Rhythm, No Murmurs/Rubs/Gallops Meds/Labs/Diagnostics Admission Meds Current Medications Lactated Ringer's (Lr) 1,000 ml @ 120 mls/hr Q8H20M IV Last administered on 12:45; Start 11/19/16 at 05:00; Stop 11/19/16 at 13:19; Status DC Fentanyl Citrate (Sublimaze Inj) 100 mcg STK-MED ONCE .ROUTE Last administered on 11/19/16 11:25; Start 11/19/16 at 11:12; Stop 11/19/16 at 11:13; Status DC Gentamicin Sulfate (Gentamicin Inj) 80 mg STK-MED ONCE INJ Last administered on 11/19/16 13:16; Start 11/19/16 at 13:16; Stop 11/19/16 at 13:27; Status DC Labs Test 11/19/16 06:45 White Blood Count 12.1th/mm3 (3.8-10.1) Red Blood Count 4.37mil/mm3 (3.90-5.20) Hemoglobin 12.4g/dL (12.0-15.6) Hematocrit 38.3% (35.0-46.0) Mean Corpuscular Volume 87.6fL (81-100) Mean Corpuscular Hemoglobin 28.4pg (27.0-35.0) Mean Corpuscular Hemoglobin Concent 32.4% (32.0-37.0) Red Cell Distribution Width 13.4% (12.3-15.4) Platelet Count 390bil/L (150-400) Prothrombin Time 9.9sec (8.1-12.5) Prothromb Time International Ratio 0.93ratio Activated Partial Thromboplast Time 31.4sec (22.8-33.0) Sodium Level 139mEq/L (134-144) Potassium Level 3.4mEq/L (3.5-5.2) Chloride Level 102mEq/L (97-108) Carbon Dioxide Level 24mmol/L (18-29) Blood Urea Nitrogen 11mg/dL (8-27) Creatinine 0.60mg/dL (0.57-1.00) Estimat Glomerular Filtration Rate 144mL/min (>59) Glucose Level 92mg/dL (60-99) Calcium Level 9.1mg/dL (8.5-10.1) Plan Impression Patient chart reviewed, patient interviewed and anesthestic plan with risks, benefits, and alternatives discussed, and informed consent obtained. NPO Status: 11/18/16 AT 2100 ASA Physical Status: ASA3 Severe Disease Anesthetic Support Modalities: [place] Scope Anesthetic Plan: GA Bene/Risks/Altern/Consents: Yes HP Complete Prior to Induction: Yes Bernardo Valle MD Nov 19, 2016 13:37
[2016-11-19] MEDS ORDERED: Polyethylene Glycol (PEG) 17 Gm Powder PO PRN (14:45)
[2016-11-19] MEDS ORDERED: diphenhydrAMINE 25 mg Capsule PO PRN ×2 (14:45→17:35)
--- NOTE | 2016-11-19 15:02 | PCM.ANEP1 ---
Post Anesthesia Phase 1 PACU Phase 1 Assessment Date of Service: Nov 19, 2016 Vital Signs Vital Signs Date Time Temp Pulse Resp B/P Pulse Ox O2 Delivery O2 Flow Rate FiO2 11/19/16 14:45 103 15 111/54 96 Nasal Cannula 2 11/19/16 14:41 36.6 101 14 105/65 100 Room Air 11/19/16 11:00 36.4 79 18 130/64 100 Room Air 11/19/16 10:35 36.3 85 16 124/92 95 Room Air 11/19/16 10:30 Room Air Anesthetic Administered: GA Level of Alertness: Awake, talking JAY's with Equal Strength: Yes Pain: No Nausea or Vomiting: No Oxygen Delivery: Room Air Lungs: Clear to Auscultation, Normal Air Movement Dermatome Level: Full Sensation Bernardo Valle MD Nov 19, 2016 15:02
--- NOTE | 2016-11-19 15:02 | PCM.ANEP2 ---
Post Anesthesia Evaluation ASA/CMS Post Anesthesia VS in Patient's Normal Range?: Yes Resp Stable; Airway Patent?: Yes CV Function & Hydration Stable: Yes Mental Status Recovered?: Yes Pain control Satisfactory?: Yes N/V Control Satisfactory?: Yes Bernardo Valle MD Nov 19, 2016 15:02
--- NOTE | 2016-11-19 15:10 | OP ---
[address] [address] OPERATIVE REPORT PATIENT: ZAFAR NUNEZ : 1950 MR#: [id number] ADMIT: 11/19/2016 JOB ID: [id number] CORRECTED REPORT: DATE OF SURGERY: 11/19/2016 SURGEON: Donna Springer MD PREOPERATIVE DIAGNOSIS(ES): Right staghorn calculus. POSTOPERATIVE DIAGNOSIS(ES): Right staghorn calculus. PROCEDURE: Right percutaneous nephrostolithotomy. ANESTHESIA: General anesthetic, Dr. Bernardo Valle. DESCRIPTION OF PROCEDURE: Under general anesthetic, the patient was placed in the prone position. She had previously had a guidewire placed by Dr. Hodgson in Radiology. The patient's back flank Glidewire and access tubing were prepped and draped in a sterile manner. The guidewire was confirmed to be in good position both in the kidney and the bladder. Direct dilation was then performed using semi rigid dilators and finally a balloon dilation catheter to dilate to 28-Uzbek. With the balloon inflated, an access sheath was advanced into the renal pelvis. The balloon was deflated and removed leaving the wire and access sheath in place. A 24-Uzbek nephroscope was advanced through the access sheath. After several small blood clots were removed, the stone was visualized. Using the ultrasound device, the stone was fragmented and extracted on suction. A small number of calculi in the upper pole could not be visualized. The remaining calculi were removed. A 12-Uzbek pigtail nephrostomy was then placed in the renal pelvis and the access sheath removed. The nephrostomy tube was sutured in place. The patient tolerated the procedure well. The estimated blood loss 200 cc. The patient left the operating room in good condition with sanguinous urine draining from both the nephrostomy tube and Cano catheter. ADDITIONAL INFORMATION: Stone size. This as well as a staghorn calculus filling much of the renal pelvis and calices. Dimensions were 7 cm x 4 cm x 3 cm. Corrected by BD 12/10/16 3:46 pm
[2016-11-19] MEDS ORDERED: fentaNYL-PF 50 mCg/mL 2 mL Inj ONE (16:18)
[2016-11-19] MEDS ORDERED: Neostigmine 1 mg/mL 10 mL Inj ONE (16:18)
[2016-11-19] MEDS ORDERED: Lidocaine PF 1% 30 mL Inj ONE (16:18)
[2016-11-19] MEDS ORDERED: Dexamethasone 4 mg/mL Inj ONE (16:18)
[2016-11-19] MEDS ORDERED: Propofol 10,000 mCg/mL 20 mL Inj ONE (16:18)
[2016-11-19] MEDS ORDERED: Ondansetron 2 mg/mL 2 mL Inj ONE (16:18)
[2016-11-19] MEDS: HYDROcodone-APAP 5-325 mg Tablet PO PRN ×2 (16:48→21:04)
[2016-11-19] MEDS ORDERED: Phenazopyridine 97.5 mg Tablet PO PRN (17:40)
[2016-11-19] MEDS ORDERED: Magnesium Hydroxide 10 mL Oral Concentration PO PRN (17:40)
[2016-11-19] MEDS ORDERED: Alum-Mag Hydrox-Simeth 30 mL Suspension PO PRN (17:40)
[2016-11-19] MEDS ORDERED: Sodium Biphos-Phos 133 mL Enema RECTAL PRN (17:40)
[2016-11-19] MEDS ORDERED: HYDROcodone-APAP 5-325 mg Tablet PO PRN (17:40)
[2016-11-19] MEDS ORDERED: hydrOXYzine Pamoate 25 mg Capsule PO PRN (17:45)
--- NOTE | 2016-11-19 18:06 | NUR ---
Post op to [facility] Report received from OR nurse. patient back with 2 ear studs and patient prefers to have them in her both ears. ear studs in both ear as patient wanted. patient is alert and oriented x3. Able to make needs known. c/o pain 10/10 back/general pain. PRN norco given with improvement in pain 8/10. UA out to lab per orders. on Oxygen 2L NC. Tolerating PO fluids and apple sauce. Right back Nephrostomy draining serous sanguinous fluid and patent. Neurogenic bladder and Drake is draining dark urine. Superficial redness on bilateral buttocks and groin folds. NAC applied house barrier cream for prevention. Q 2 turns for repositioning and skin prevention. 2 person assist with all cares. wheel chair bound per report r/t MS. lung sounds clear bilaterally. last BM yesterday per patient. patient came from OR with IV fluids LR. stable vital signs. stable mood. Call light with in reach for safety. Continue to monitor skin, q2 turns, pain in the back, vital signs, Nephrostomy care, drake care, and safety.
[2016-11-19 19:05] LABS: APPEARANCE,URINE CLOUDY (CLEAR,HAZY); COLOR,URINE BLOODY (YELLOW); OCCULT BLOOD,URINE LARGE (NEGATIVE); UROBILINOGEN,URINE NORMAL (NORMAL)
[2016-11-19] MEDS: levETIRAcetam 500 mg Tablet PO SCH (20:51)
[2016-11-20 00:08] VITALS: BP 104/50; PULSE 109; RESP 16; O2SAT 98
[2016-11-20] MEDS: Lactated Ringer's 1,000 ML IV SCH ×3 (01:38→16:12)
[2016-11-20 05:43] VITALS: BP 99/61; PULSE 122; RESP 18; O2SAT 94
[2016-11-20] MEDS: HYDROcodone-APAP 5-325 mg Tablet PO PRN (05:51)
[2016-11-20 06:15] LABS: Mean Corpuscular Hemoglobin 28.4 pg (27.0-35.0); Mean Corpuscular Volume 88.5 fL (81-100)
--- NOTE | 2016-11-20 07:29 | NUR ---
Pain Patient states pain 8/10. Siloam 1 tab given, managed to lower pain level. Cano draining sanguinous fluid. Nephrostomy draining, 70 ml this shift. Patient Alert and oriented. Room air. PO medications with apple sauce.
[2016-11-20] MEDS: levETIRAcetam 500 mg Tablet PO SCH ×2 (08:51→20:48)
[2016-11-20 09:02] VITALS: BP 111/68; PULSE 107; RESP 20; O2SAT 97
[2016-11-20 12:00] VITALS: BP 118/60; PULSE 117; RESP 16; O2SAT 95
--- NOTE | 2016-11-20 12:00 | NUR ---
MD NOTIFICATION T-38. 6 orally; HR-100's. WBC up to 22 this morning. Nephrostomy tube in place. IFC intact and draining to cranberry colored UO with some sediments noted. Dr. Springer was made aware. is aware of lab values. Patient was started on Cipro. Nephrostogram is scheduled for this afternoon. Care continues.
--- NOTE | 2016-11-20 13:00 | NUR ---
TO IR Patient transported via a bed for her nephrostogram.
--- NOTE | 2016-11-20 14:35 | NUR ---
Social Work- Initial Assessment Attempt Data& Assessment: EMR reviewed. Pt is a 66 year old female admitted 11/19/16 for right kidney stone per H&P. Pt's insurance is [facility] and [facility] Supp. Pc's PCP is Lanie Rose MD. 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 Pt unable to complete assessment, requested SW contact [facility]. SW contacted [facility] and requested return call. SW will follow up regarding assessment. Plan: SW to follow up regarding assessment. SW called Lexus Rowe [phone] and requested return call. SW will continue to follow. MIKIE Read
[2016-11-20 15:00] VITALS: BP 117/74; PULSE 105; RESP 16; O2SAT 93
--- NOTE | 2016-11-20 15:30 | NUR ---
MD NOTIFICATION T-37. 3 orally at this time. Nephrostomy tube was d/cd. IFC has approximately 500 ml out of cranberry colored UO. Denies pain. Poor appetite. Denies SOB. Turned and repositioned Q 2 hrs. Wheelchair bound at baseline. Dr. Springer made aware RE: Patients progress. Per MD patient january d/c back to SNF. SW made aware.
--- NOTE | 2016-11-20 16:11 | NUR ---
Spoke with director of case management and RN, we are needing actual orders for discharge to SNF. Patient will stay tonight and we will get complete CPOE orders to send patient back to [facility] in the morning. Spoke with David at [facility] and he is okay with this plan as well. Patient also looks like she will meet criteria for BLS, will recheck chart in the morning and plan to have patient return to [facility]. Updated INSTRUMENT INSTALLER
--- NOTE | 2016-11-20 16:12 | DRSVH ---
PROCEDURE: X-RAY NEPHRO TUBE REMOVAL W/INJECTION INDICATIONS: nephrostogram & nephrostomy tube removal COMPARISON: None. FINDINGS: Integrated Marketing Manager view demonstrates right percutaneous nephrostomy and ureteral stent. Cholecystectom y clips. Isovue 300 was instilled which demonstrates expected patency of the right ureteral stent and therefor e the percutaneous nephrostomy tube was removed without difficulty. IMPRESSION: Patent right ureteral stent and interval removal of the percutaneous nephrostomy tube. Dictated by: Addy HODGSON Interpreted: Donna Rushing MD on 11/20/2016 at 16:10 Transcribed by: REUBEN on 11/20/2016 at 16:11 Approved by: Donna Rushing MD, PhD on 11/20/2016 at 17:09
--- NOTE | 2016-11-20 16:15 | NUR ---
MD NOTIFICATION Dr. Springer made aware RE: SW issues prior to D/C. MD is aware of this. Discharge is on hold at this time. Patient will not d/c till tomorrow. Dr. Springer is aware.
--- NOTE | 2016-11-20 16:56 | PCM.DIMED ---
Discharge Instructions Date of Service Nov 20, 2016 Dates of Hospitalization Nov 19, 2016 at 16:17 Discharge Diagnosis Discharge Diagnosis staghorn calculus Medication Instructions see Rx Patient Instructions Provider: Donna Springer MD Follow-up in: 1 week (for stent removal) Donna Springer MD Nov 20, 2016 16:56
--- NOTE | 2016-11-20 18:38 | NUR ---
POST-OP PROGRESS Patient denies pain. Poor appetite. Tolerating liquids PO. Needs frequent encouragement to take fluids. Denies nausea. No emesis noted. Denies SOB. Patient has been turned and repositioned Q 2 hrs. She is wheelchair bound at baseline. IFC intact and draining to cranberry colored UO. No clots noted at this time. Dressing in her R flank area remains CDI. Care continues.
[2016-11-20 20:48] VITALS: BP 113/66; PULSE 104; RESP 16; O2SAT 94
--- NOTE | 2016-11-20 22:50 | DIS ---
[address] [address] DISCHARGE SUMMARY PATIENT: ZAFAR NUNEZ : 1950 MR#: [id number] ADMIT: 11/19/2016 JOB ID: [id number] DIS: 11/20/2016 Postop day one nephrolithotomy. The patient had a nephrostogram and removal of nephrostomy tube today. There was contrast draining into the bladder through her ureteral stent. The patient is afebrile. Vital signs stable. Her white count is elevated postoperatively, as expected. Basic metabolic panel is within normal limits. Plan is to discharge back to snf facility today and have her back next week for stent removal. Normally, stent removal is done in the office, but since she is a Kirt lift, this will need to be done in the operating room.
--- NOTE | 2016-11-21 00:19 | NUR ---
Skin Care/ Operative Site Upon initial assessment, ruben area was red, and buttock area was red and excoriated. Barrier cream was applied on ruben area, and a Mepilex was placed on the coccyx. Right heel presented with some redness and now heels are floated. Pressure ulcer protocols have also been initiated, and Q2 turns and skin protection measures are being preformed. Patient is already on a P500 bed. Care continues. In addition, right flank dressing site was saturated with sero-sanguinous fluid, and had leaked through the abd pad. New dressing was applied to the site.
[2016-11-21] MEDS: Lactated Ringer's 1,000 ML IV SCH (03:01)
[2016-11-21 05:36] VITALS: BP 103/63; PULSE 89; RESP 16; O2SAT 96
--- NOTE | 2016-11-21 08:53 | NUR ---
Arranged S transport for 930AM via [facility], notified RN and GRANTS AND CONTRACTS ASSISTANT. PCS form completed and copy placed on chart. Spoke with David Robison at [facility] and they are prepared to have patient return this morning. Patient comes from them and it a [facility] patient. Updated GRANTS AND CONTRACTS ASSISTANT
--- NOTE | 2016-11-21 08:54 | NUR ---
Social Work- Initial Assessment Late note, SW spoke with son Oliver 11/20 to complete initial assessment. Data: See Initial Assessment. Pt is a 66 year old female admitted 11/19/16 for right kidney stone per H&P. Pt's insurance is [facility] and [facility]. Pt's PCP is Lanie Rose MD. SW met with pt at bedside to attempt initial assessment, pt was unable to complete assessment. Pt requested SW call son Oliver Rowe, . SW received return call from Oliver 11/20/16. Pt resides at [facility] where she receives assistance with her ADLs. [place] a wheelchair at base and does not drive. Pt has no HH or SNF history. Pt has no LTC insurance or VA benefits. Pt has DPOA on file- son Oliver. UR Specialist spoke with David, admissions at [facility], who is agreeable to accepting pt back at discharge. Paperwork in chart. SW left number on whiteboard in room. SW will continue to follow. Assessment: Pt who resides at [facility] Plan: Pt to return to [facility] at discharge. Paperwork in chart. SW will continue to follow. MIKIE Read Addendum: 11/21/16 at 0858 by GINI CONSTANTINO Amended: Links added.
--- NOTE | 2016-11-21 08:58 | NUR ---
Social Work- Readiness for Discharge Data: EMR reviewed. Pt is on day2 of hospitalization for kidney stone per H&P. Pt's nephrostomy tube removed. Pt to discharge back to [facility] where she is a residential care patient. Pt anticipated to discharge later today. [facility] agreeable to accepting pt today. UR Specialist to review pt's eligibility for BLS transport. SW will continue to follow. Assessment: Pt who is a residential care pt at [facility]. 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 UR Specialist to review pt's eligibility for BLS transport. SW will continue to follow. MIKIE Read
[2016-11-21] MEDS: levETIRAcetam 500 mg Tablet PO SCH (08:59)
[2016-11-21 09:02] VITALS: BP 117/69; PULSE 94; RESP 16; O2SAT 99
--- NOTE | 2016-11-21 09:30 | NUR ---
DISCHARGE Tylenol PO has been adequate for pain control. Patient has been tolerating liquids PO and her diet well. Denies nausea. No emesis noted. Denies SOB. IFC is draining to cinthia colored UO. Turned and repositioned. Dressing changed in her R flank area. IV d/cd. Report given to Amena in [facility]. Patient transported back to SNF via BLS.
--- NOTE | 2016-11-21 11:12 | NUR ---
Social Work- Discharge Data: EMR reviewed. Pt is on day 2 of hospitalization for kidney stone per H&P. Pt is medically stable for discharge. 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 [facility] agreeable to accepting pt today. UR Specialist and JOSE agree pt is a BLS candidate. UR Specialist created packet, faxed orders, and set up transportation via BLS at 930. RN, UC, pt/family and [facility] all updated and agreeable to plan. 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 Plan: Pt to discharge to [facility], where she is a halfway care pt, via S at 930. RN, UC, pt/family and [facility] all updated and agreeable to plan. MIKIE Read
[2016-11-26 09:11] LABS: Stone Color Tan (.)
== END 2016-11-21 09:30 | DRG 661 ==
LOC: SAS 06:00 → OSC 16:17
PROVIDERS: ADMIT Urology; ATTEND Urology
PROC: 0TC34ZZ Extirpation of Matter from Right Kidney Pelvis, Percutaneous Endoscopic Approach (ICD-10-PCS; principal; 2016-11-19 11:30)
DX: N20.0 Calculus of kidney (principal)

== ENCOUNTER 2016-12-11 07:44 | Day surgery (SDC) | payer MEDICARE, MEDICAID ==
[~2016-12-11] VITALS: Ht 153.7 cm; Wt 49.0 kg
[~2016-12-11 07:44] MED LIST changes: +AMT25T PO; -ASPI-973 PO; +Gentamicin 80 mg/50 mL D5W IV ONE; +HYDR-656 PO; -HYDR25CA PO; +Lactated Ringer's 1,000 ML IV SCH; -MYCC TP; -POLY17PO6 PO; -cefTRIAXone Inj 1,000 MG in Dextrose 5% Minibag Plus 50 ML IV ONE
[2016-12-11] MEDS ORDERED: Ondansetron 2 mg/mL 2 mL Inj ONE (07:45)
[2016-12-11] MEDS ORDERED: fentaNYL-PF 50 mCg/mL 2 mL Inj ONE (07:45)
--- NOTE | 2016-12-11 07:54 | PCM.HPANE ---
Patient Data Surgeon Admitting Provider: Attending Provider:Donna Springer MD Primary Care Physician:Lanie Burgos MD Other Provider:Yenni Bookeringham Anesthesia Reason for Visit Right Kidney Stone Ht/WT & BMI Height (Feet): 5 Height (Inches): 4 Weight (Kilograms): 49.5 Body Mass Index 18.00 Allergies Coded Allergies: latex (Verified Allergy, Severe, contact dermatitis, 11/18/16) Penicillins (Verified Allergy, Unknown, UNKNOWN, 11/18/16) Sulfa (Sulfonamide Antibiotics) (Verified Allergy, Unknown, UNKNOWN, ) clindamycin (Verified Allergy, Unknown, UNKNOWN, 11/18/16) metronidazole (Verified Allergy, Unknown, UNKNOWN, 11/18/16) morphine (Verified Allergy, Unknown, UNKNOWN, 11/18/16) propoxyphene (Verified Allergy, Unknown, UNKNOWN, 11/18/16) Past Anesthesia History Anesthesia History: Denies:: Anesthesia Reactions, Malignant Hyperthermia Diabetes History Hx Diabetes?: No MRSA MRSA: No Medications Blood Thinner: Aspirin Hypertension Medication: Yes Home Meds Incl Beta Ravi: No Reported Medications hydrOXYzine Hcl (HydrOXYzine Hcl)25 Mg Ymxsni37 Mg PO HS PRN BLADDER SPASMS 11/19/16 Amitriptyline 25 Mg Tab25 Mg PO DAILY BLADDER SPASM Ref 0 11/19/16 Fosfomycin Tromethamine (Monurol)3 Gm Packet3 Gm PO WEEKLY X 6 WEEKS (INSTRUCTIONS TO SNF WERE TO GIVE ON 10/09/16 & 10/12/16 WELL) 10/08/16 Hydrocortisone 120 Applic/30 Gm Cr1 Applic TP BID PRN PRN 0.5-1% 10/08/16 Lactobacillus Acidophilus (Acidophilus)1 Each Tablet1 Each PO BID PRN PRN 10/08/16 Sennosides (Senna)8.6 Mg Lkkobq53.2 Mg PO DAILY PRN PRN 10/08/16 Lisinopril 5 Mg Tablet5 Mg PO DAILY #30 TABLET Ref 0 10/08/16 Calcium Carbonate (Tums Ultra Strength)1,177 Mg Tab.qult872 Mg PO Q4H PRN PRN 10/08/16 Nystatin 1 Each Powder.ea.1 Each MC DAILY PRN PRN 10/08/16 [Benedryl] No Conflict Check25 Mg PO Q4H PRN PRN 1/25/17 Docusate Sodium 250 Mg Kyuujyz178 Mg PO BID PRN For Constipation Ref 0 10/08/16 Estradiol 0.5 Mg Tablet0.5 Mg PO DAILY 10/08/16 Na Phos,M-B/Na Phos,Di-Ba (Fleet Enema)133 Ml Bouaz824 Ml RC DAILY PRN PRN 10/08/16 Loratadine (Claritin)10 Mg Lyjhdmb07 Mg PO DAILY Ref 0 10/08/16 Calcium Carb/Vit D3/Minerals (Calcium 600+D Plus Minerals Tb)1 Each Tablet1 Each PO DAILY 10/08/16 Levetiracetam (Keppra)1,000 Mg Tablet1,000 Mg PO BID 10/08/16 Bisacodyl (Dulcolax Rectal)10 Mg Supp.rect10 Mg RC DAILY PRN For Constipation 30 Days Ref 0 10/08/16 Magnesium Hydroxide (Milk of Magnesia)400 Mg/5 Ml Oral.susp30 Ml PO DAILY PRN PRN 10/08/16 Multivitamin with Minerals (Totalday Multiple)1 Each Tablet.er1 Each PO DAILY 10/08/16 Phenazopyridine (Pyridium)100 Mg Swabnx534 Mg PO TID For Painful Urination Ref 0 10/08/16 Benzocaine (Anbesol)9 Gm Gel..gram.9 Gm MM Q2H PRN PRN 10/08/16 Hydrocodone-Acetaminophen 5-325 mg 1 Each Tablet2 Tablet PO DAILY PRN For Pain Ref 0 10/08/16 Mag Hydrox/Al Hydrox/Simeth (Antacid M Liquid)355 Ml Oral.susp30 Ml PO Q6H PRN PRN 10/08/16 History History of ENT Problems?: Yes HEENT History: Positive for:: Sinus Problem (seasonal allergies) Hx of Heart Problems?: Yes Cardiovascular History: Positive for:: Hypertension Denies:: Heart Murmur Hx of Respiratory Problem?: No Respiratory History: Denies:: Oxygen Administration Use of C-PAP Machine Hx Neurologic Problems?: Yes Neurological History: Positive for:: Multiple Sclerosis (wheelchair bound, ) Seizures Denies:: CVA Hx of GI Problems?: No Hx of Problems?: Yes Genitourinary History: Positive for:: Kidney Stones (right current admission problem, percu procedure earlier november) Urinary Tract Infection (past hx of) Female Hx: Denies:: Currently Skin History: Denies:: History Skin Disorders? Pressure Ulcers Hx Musculoskeletal Problems?: Yes Hx of Psycho/Social Problems?: No Hx Surgeries?: Yes (CYSTO,CYSTO/LITHOLAPAXY,CYSTO/STENT/STONE BASKET) Hx Any Other Health Problems?: Yes Other History: Positive for:: Hospitalization Denies:: Cancer Endocrine Disease Thyroid Disease Hx Diabetes: No Hx Alcohol Use: NoHx Substance Use: No Smoking Status: Never Smoker Have You Smoked inLast 12 mo: No Stop/Bang P-Blood Pressure: treated: Yes B- Body Mass Index > 35 kg/m2: No A- Age over 50: Yes N- Neck Large Circumference: No G- Gender Male: No Risk Assessment Category Category 1A: Patient has history of documented sleep apnea, and HAS NOT received any narcotic, sedative or anesthesia administration during this stay. Category 1B: Patient has history of documented sleep apnea, and HAS received any narcotic , sedative or anesthesia administration during this stay Category 2: Patient has SUSPECTED Obstructive Sleep Apnea, and HAS received any narcotic , sedative or anesthesia administration during this stay. Category 3: Patient has SUSPECTED Obstructive Sleep Apnea and HAS NOT received narcotic, sedative or anesthesia administration during this stay. Category 4: Outpatient in Procedural Areas with known sleep apnea or who screen positive for High Risk via the STOP/BANG questionnaire. Exam Exam General Appearance: Alert, Oriented X3, Cooperative, No Acute Distress HEENT/AIRWAY: MP 1 Lungs: Normal Air Movement Heart: Exam Unremarkable Plan Impression Patient chart reviewed, patient interviewed and anesthestic plan with risks, benefits, and alternatives discussed, and informed consent obtained. NPO Status: mn ASA Physical Status: ASA3 Severe Disease (advanced MS) Anesthetic Plan: MAC Bene/Risks/Altern/Consents: Yes HP Complete Prior to Induction: Yes Eliseo Salazar MD Dec 11, 2016 07:54
[2016-12-11 08:30] VITALS: BP 128/55; PULSE 103; RESP 12; O2SAT 100
[2016-12-11] MEDS ORDERED: Lactated Ringer's 1,000 ML IV ONE (08:42)
[2016-12-11] MEDS ORDERED: Lactated Ringer's 1,000 ML IV SCH (09:38)
[2016-12-11] MEDS ORDERED: Lactated Ringer's 500 ML IV PRN (09:38)
[2016-12-11] MEDS ORDERED: Ondansetron 2 mg/mL 2 mL Inj IVPUSH PRN (09:40)
[2016-12-11] MEDS ORDERED: Dexamethasone 4 mg/mL Inj IVPUSH PRN (09:40)
[2016-12-11] MEDS ORDERED: EPHEDrine Sulfate 50 mg/mL Inj IVPUSH PRN (09:40)
[2016-12-11] MEDS ORDERED: fentaNYL-PF 50 mCg/mL 2 mL Inj IVPUSH PRN (09:40)
[2016-12-11] MEDS ORDERED: MetoCLOpramide 5 mg/mL 2 mL Inj IVPUSH PRN (09:40)
[2016-12-11] MEDS ORDERED: Phenylephrine 10,000 mCg/mL Inj IVPUSH PRN (09:40)
[2016-12-11 10:06] VITALS: BP 132/83; PULSE 92; RESP 16; O2SAT 97
--- NOTE | 2016-12-11 10:11 | PCM.ANEP1 ---
Post Anesthesia Phase 1 PACU Phase 1 Assessment Vital Signs Vital Signs Date Time Temp Pulse Resp B/P Pulse Ox O2 Delivery O2 Flow Rate FiO2 12/11/16 10:06 36.6 92 16 132/83 97 Room Air 12/11/16 08:30 35.8 103 12 128/55 100 Room Air Anesthetic Administered: MAC Level of Alertness: Awake, talking JAY's with Equal Strength: Yes Pain: No Nausea or Vomiting: No Oxygen Delivery: Room Air Lungs: Normal Air Movement Eliseo Salazar MD Dec 11, 2016 10:11
--- NOTE | 2016-12-11 10:12 | PCM.ANEP2 ---
Post Anesthesia Evaluation ASA/CMS Post Anesthesia VS in Patient's Normal Range?: Yes Resp Stable; Airway Patent?: Yes CV Function & Hydration Stable: Yes Mental Status Recovered?: Yes Pain control Satisfactory?: Yes N/V Control Satisfactory?: Yes Eliseo Salazar MD Dec 11, 2016 10:12
[2016-12-11 10:46] VITALS: BP 130/65; PULSE 90; RESP 18; O2SAT 98
--- NOTE | 2016-12-11 10:59 | DRSVH ---
PROCEDURE: X-RAY KUB ([id number]) INDICATIONS: post op TECHNIQUE: One view of the abdomen acquired. COMPARISON: [facility], CR, XR NEPHRO TUBE REMOVAL W INJ, 11/20/2016, 13:32. [facility], CR, XR NEPHROSTOGRAM, 11/19/2016, 15:15. [facility], CR, XR SURG FLOURO EA 3 0 MIN, 11/19/2016, 12:35. [facility], XA, NEPHROSTOMY WIRE PLACEMENT (P), 11/19/2016, 9:08 . [facility], CR, XR KUB, 11/06/2016, 10:24. [facility], CR, XR KUB, 017, 12:47. FINDINGS: Surgical changes and devices: Clips are seen within the right upper quadrant, suggesting a prior chol ecystectomy. The previously seen percutaneous nephrostomy tube and double-J right-sided ureteral candelaria nt have been removed in the interim. Bowel: Bowel gas pattern is normal. Soft tissues: Calcifications within the right upper quadrant appear to be present. Visualized solid organ contours appear normal in size. Bones: No suspicious bony lesions. The bone mineralization is decreased. There are degenerative ch anges of the lumbosacral spine and hips. IMPRESSION: 1. Interval removal of the right-sided nephrostomy tube and double-J ureteral stent. 2. Calcifications overlying the expected location of the right kidney appear to be present. Dictated by: Newton Avalos M.D. on 12/11/2016 at 9:56 Approved by: Newton Avalos M.D. on 12/11/2016 at 9:57
--- NOTE | 2016-12-11 11:03 | OP ---
[address] [address] OPERATIVE REPORT PATIENT: ZAFAR NUNEZ : 1950 MR#: [id number] ADMIT: 12/11/2016 JOB ID: [id number] DATE OF SURGERY: 12/11/2016 SURGEON: Donna Springer MD PREOPERATIVE DIAGNOSIS(ES): Renal calculi, retained right ureteral stent. POSTOPERATIVE DIAGNOSIS(ES): Renal calculi, retained right ureteral stent. PROCEDURE: Cystoscopy and stent removal. ANESTHESIA: [facility] [place] anesthetic, Dr. Salazar. DESCRIPTION OF PROCEDURE: Anesthesia. The patient was placed in a supine position. The legs were frog-legged. Cano catheter was removed. A 22-Canadian cystoscope was introduced through a patulous urethra. Protruding from the right ureteral orifice was a double-J stent. This was grasped with an alligator forceps and removed intact. An 18-Canadian silicone catheter was then replaced. The patient tolerated the procedure well, left the operating room in good condition. She did receive 80 mg of gentamicin perioperatively.
== END 2016-12-11 23:59 | disposition home or self-care (01) ==
LOC: SAS 07:44
PROVIDERS: ATTEND Urology
DX: N20.0 Calculus of kidney (principal); G35 Multiple sclerosis; N31.9 Neuromuscular dysfunction of bladder, unspecified; N39.41 Urge incontinence; N32.81 Overactive bladder; Z87.440 Personal history of urinary (tract) infections; Z99.3 Dependence on wheelchair; Z79.82 Long term (current) use of aspirin
CPT/HCPCS: 52310; 74000; J2405; J3010; J7120

== ENCOUNTER 2017-03-26 07:21 | Day surgery (SDC) | payer MEDICARE, MEDICAID ==
[2017-03-26] VITALS (9 sets, daily range): BP systolic 111–128; BP diastolic 30–68; PULSE 74–82; RESP 6–17; O2SAT 95–100
[~2017-03-26] VITALS: Ht 166.4 cm; Wt 49.0 kg
[~2017-03-26 07:21] MED LIST changes: -AMT25T PO; +ASPI-973 PO; -FOSF3PAC PO; -Gentamicin 80 mg/50 mL D5W IV ONE; -LISI-571 PO; +Lidocaine-Prilo 2.5-2.5% 30 Gm Cream TOPICAL ONE; -MAG355OR31 PO; -MAGN400O4 PO; +MYCC TOP; +POLY17PO6 PO
[2017-03-26] MEDS ORDERED: Phenylephrine/NS 100 mCg/mL 10 mL Syringe IVPUSH ONE (07:22)
[2017-03-26] MEDS ORDERED: Ondansetron 2 mg/mL 2 mL Inj ONE (07:22)
[2017-03-26] MEDS ORDERED: Propofol 10,000 mCg/mL 20 mL Inj ONE (07:22)
[2017-03-26] MEDS ORDERED: fentaNYL-PF 50 mCg/mL 2 mL Inj ONE (07:22)
[2017-03-26] MEDS ORDERED: Dexamethasone 4 mg/mL Inj ONE (07:22)
[2017-03-26] MEDS ORDERED: LISI10TA PO (08:09)
--- NOTE | 2017-03-26 09:41 | PCM.HPANE ---
Patient Data Date of Service: Mar 26, 2017 ([id number]) Surgeon Admitting Provider: Attending Provider:Kristan Keller MD Primary Care Physician:Lanie Burgos MD Other Provider:Marquita Booker Anesthesia Reason for Visit Right Kidney Stone Ht/WT & BMI Height (Feet): 5 Height (Inches): 5.50 Weight (Kilograms): 49.000 Body Mass Index 17.00 Allergies Coded Allergies: latex (Verified Allergy, Severe, contact dermatitis, 03/20/17) chlorhexidine (Verified Allergy, Intermediate, RASH, 03/20/17) Penicillins (Verified Allergy, Unknown, UNKNOWN, 03/20/17) Sulfa (Sulfonamide Antibiotics) (Verified Allergy, Unknown, UNKNOWN, ) clindamycin (Verified Allergy, Unknown, UNKNOWN, 03/20/17) metronidazole (Verified Allergy, Unknown, UNKNOWN, 03/20/17) morphine (Verified Allergy, Unknown, UNKNOWN, 03/20/17) propoxyphene (Verified Allergy, Unknown, UNKNOWN, 03/20/17) Uncoded Allergies: CIPRO & LEVOFLOXACIN (Allergy, Severe, RASH, 03/20/17) Past Anesthesia History Anesthesia History: Denies:: Anesthesia Reactions, Malignant Hyperthermia Diabetes History Hx Diabetes?: No MRSA MRSA: No Medications Blood Thinner: Aspirin Hypertension Medication: No Home Meds Incl Beta Ravi: No Reported Medications Lisinopril 10 Mg Krplbh40 Mg PO DAILY 30 Days Ref 0 03/26/17 Nystatin 60 Applic/15 Gm Cream1 Applic TOP BID 03/20/17 Polyethylene Glycol 3350 (Miralax)17 Gm Powd.pack17 Gm PO DAILY 03/20/17 Aspirin 81 Mg Ogzkvy32 Mg PO DAILY Ref 0 03/20/17 Lactobacillus Acidophilus (Acidophilus)1 Each Tablet1 Each PO BID PRN PRN 10/08/16 Sennosides (Senna)8.6 Mg Vmuwrq97.2 Mg PO DAILY PRN PRN 10/08/16 Calcium Carbonate (Tums Ultra Strength)1,177 Mg Tab.ednt028 Mg PO Q4H PRN PRN 10/08/16 Nystatin 1 Each Powder.ea.1 Each MC DAILY PRN PRN 10/08/16 Docusate Sodium 250 Mg Fwmhfpm883 Mg PO BID PRN For Constipation Ref 0 10/08/16 Estradiol 0.5 Mg Tablet0.5 Mg PO DAILY 10/08/16 Na Phos,M-B/Na Phos,Di-Ba (Fleet Enema)133 Ml Uwuda154 Ml RC DAILY PRN PRN 10/08/16 Loratadine (Claritin)10 Mg Xcujbtq85 Mg PO DAILY Ref 0 10/08/16 Calcium Carb/Vit D3/Minerals (Calcium 600+D Plus Minerals Tb)1 Each Tablet1 Each PO DAILY 10/08/16 Bisacodyl (Dulcolax Rectal)10 Mg Supp.rect10 Mg RC DAILY PRN For Constipation 30 Days Ref 0 10/08/16 Multivitamin with Minerals (Totalday Multiple)1 Each Tablet.er1 Each PO DAILY 10/08/16 Phenazopyridine (Pyridium)100 Mg Olfzwd616 Mg PO TID For Painful Urination Ref 0 10/08/16 Hydrocodone-Acetaminophen 5-325 mg 1 Each Tablet2 Tablet PO DAILY PRN For Pain Ref 0 10/08/16 Discontinued Reported Medications hydrOXYzine Hcl (HydrOXYzine Hcl)25 Mg Aweyza61 Mg PO HS PRN BLADDER SPASMS 11/19/16 Hydrocortisone 120 Applic/30 Gm Cr1 Applic TP BID PRN PRN 0.5-1% 10/08/16 [Benedryl] No Conflict Check25 Mg PO Q4H PRN PRN 10/08/16 Levetiracetam (Keppra)1,000 Mg Tablet1,000 Mg PO BID 10/08/16 Benzocaine (Anbesol)9 Gm Gel..gram.9 Gm MM Q2H PRN PRN 10/08/16 Amitriptyline 25 Mg Tab25 Mg PO DAILY BLADDER SPASM Ref 0 11/19/16 Fosfomycin Tromethamine (Monurol)3 Gm Packet3 Gm PO WEEKLY X 6 WEEKS (INSTRUCTIONS TO SNF WERE TO GIVE ON 10/09/16 & 10/12/16 WELL) 10/08/16 Lisinopril 5 Mg Tablet5 Mg PO DAILY #30 TABLET Ref 0 10/08/16 Magnesium Hydroxide (Milk of Magnesia)400 Mg/5 Ml Oral.susp30 Ml PO DAILY PRN PRN 10/08/16 Mag Hydrox/Al Hydrox/Simeth (Antacid M Liquid)355 Ml Oral.susp30 Ml PO Q6H PRN PRN 1/25/17 History History of ENT Problems?: Yes HEENT History: Positive for:: Sinus Problem (seasonal allergies) Denture Type: None Teeth Condition: Within Normal Limits Hx of Heart Problems?: Yes Cardiovascular History: Positive for:: Hypertension Denies:: Heart Murmur Hx of Respiratory Problem?: No Respiratory History: Denies:: Oxygen Administration Use of C-PAP Machine Hx Neurologic Problems?: Yes Neurological History: Positive for:: Multiple Sclerosis (wheelchair bound- ESSENTIALLY QUADRIPLEGIC) Seizures Denies:: CVA Hx of GI Problems?: No Hx of Problems?: Yes Genitourinary History: Positive for:: Kidney Stones (HX PRIOR STONES RT STONE=CURRENT PROBLEM ) Urinary Tract Infection (past hx of) Other Pertinent History: S/P CYSTO,LITHOLAPAXY,STENT/STONE BASKET,STENT REMOVAL Female Hx: Denies:: Currently Skin History: Denies:: History Skin Disorders? Pressure Ulcers Hx Musculoskeletal Problems?: Yes Hx of Psycho/Social Problems?: No Hx Surgeries?: Yes (CYSTO,CYSTO/LITHOLAPAXY,CYSTO/STENT/STONE BASKET,STENT REMOVAL) Hx Any Other Health Problems?: Yes Other History: Positive for:: Hospitalization Denies:: Cancer Endocrine Disease Thyroid Disease Hx Diabetes: No Hx Alcohol Use: NoHx Substance Use: No Smoking Status: Never Smoker Have You Smoked inLast 12 mo: No Stop/Bang Treated for Sleep Apnea?: No Do You Have a CPAP Machine?: No S-Snoring: Do You Snore Loudly: No T-Tired: feel tired, fatigued: Yes O-Obsered: Observed not breath: No P-Blood Pressure: treated: Yes B- Body Mass Index > 35 kg/m2: No A- Age over 50: Yes N- Neck Large Circumference: No G- Gender Male: No ELIZABETH Total Score: 3 ELIZABETH Risk Assessment: Low Risk, <3 Yes Risk Assessment Category Category 1A: Patient has history of documented sleep apnea, and HAS NOT received any narcotic, sedative or anesthesia administration during this stay. Category 1B: Patient has history of documented sleep apnea, and HAS received any narcotic , sedative or anesthesia administration during this stay Category 2: Patient has SUSPECTED Obstructive Sleep Apnea, and HAS received any narcotic , sedative or anesthesia administration during this stay. Category 3: Patient has SUSPECTED Obstructive Sleep Apnea and HAS NOT received narcotic, sedative or anesthesia administration during this stay. Category 4: Outpatient in Procedural Areas with known sleep apnea or who screen positive for High Risk via the STOP/BANG questionnaire. Exam Exam Vital Signs Vital Signs Date Time Temp Pulse Resp B/P Pulse Ox O2 Delivery O2 Flow Rate FiO2 03/26/17 08:02 36.1 81 12 118/63 95 Room Air General Appearance: Alert, Oriented X3, Moderate Distress HEENT/AIRWAY: MP 1 Lungs: Clear to Auscultation Heart: Exam Unremarkable Additional Information LEFT SIDED HEMIPARESIS Plan Impression Patient chart reviewed, patient interviewed and anesthestic plan with risks, benefits, and alternatives discussed, and informed consent obtained. NPO per Anesth. Guidelines: Yes ASA Physical Status: ASA3 Severe Disease Anesthetic Plan: GA Bene/Risks/Altern/Consents: Yes HP Complete Prior to Induction: Yes Riley Red MD Mar 26, 2017 09:40
[2017-03-26] MEDS ORDERED: Lactated Ringer's 500 ML IV PRN (09:42)
[2017-03-26] MEDS ORDERED: Lactated Ringer's 1,000 ML IV SCH (09:42)
[2017-03-26] MEDS ORDERED: EPHEDrine Sulfate 50 mg/mL Inj IVPUSH PRN (09:45)
[2017-03-26] MEDS ORDERED: MetoCLOpramide 5 mg/mL 2 mL Inj IVPUSH PRN (09:45)
[2017-03-26] MEDS ORDERED: Ondansetron 2 mg/mL 2 mL Inj IVPUSH PRN (09:45)
[2017-03-26] MEDS ORDERED: Phenylephrine 10,000 mCg/mL Inj IVPUSH PRN (09:45)
[2017-03-26] MEDS ORDERED: fentaNYL-PF 50 mCg/mL 2 mL Inj IVPUSH PRN (09:45)
[2017-03-26] MEDS ORDERED: Dexamethasone 4 mg/mL Inj IVPUSH PRN (09:45)
--- NOTE | 2017-03-26 09:45 | DRSVH ---
PROCEDURE: X-RAY KUB ([id number]) INDICATIONS: RIGHT KIDNEY STONE TECHNIQUE: One view of the abdomen acquired. COMPARISON: [facility], MARK, KUB XRAY (1 VIEW ABDOMEN), 02/25/2017, 9:51. [facility] , CR, XR KUB, 12/11/2016, 10:34. FINDINGS: Surgical changes and devices: None. Bowel: Bowel gas pattern is normal. Soft tissues: No suspicious abdominal calcifications. Multiple calcifications are present overlying the right renal shadow without interval change. Visualized solid organ contours appear normal in size . Bones: No suspicious bony lesions. IMPRESSION: Stable interval appearance of multiple right renal shadow calcifications. Dictated by: Maria Eugenia Beasley M.D. on 03/26/2017 at 9:42 Approved by: Maria Eugenia Beasley M.D. on 03/26/2017 at 9:43
[2017-03-26] MEDS ORDERED: Belladonna Alk-Opium 60 mg Rectal Suppository RECTAL ONE ×2 (10:05→10:19)
[2017-03-26] MEDS ORDERED: HYDROcodone-APAP 5-325 mg Tablet PO PRN (11:20)
[2017-03-26] MEDS ORDERED: Ondansetron 8 mg ODT Tablet PO PRN (11:20)
--- NOTE | 2017-03-26 11:20 | PCM.ANEP1 ---
Post Anesthesia PACU Phase 1 Assessment Vital Signs 125/51, 72, 16, 99%, 36.1 Vital Signs Date Time Temp Pulse Resp B/P Pulse Ox O2 Delivery O2 Flow Rate FiO2 03/26/17 08:02 36.1 81 12 118/63 95 Room Air Anesthetic Administered: GA Level of Alertness: Awake, talking JAY's with Equal Strength: No (at baseline) Pain: No Nausea or Vomiting: No CV Function & Hydration Stable: Yes Airway Device: none Oxygen Delivery: Simple Mask Lungs: Clear to Auscultation Dermatome Level: Full Sensation Summary brief episode of PVCs, otherwise uneventful GA. At baseline. PACU Phase 2 Assessment Complications: No Follow up Care: No Patient Instructions Provided: N/A Riley Red MD Mar 26, 2017 11:20
--- NOTE | 2017-03-27 14:00 | OP ---
[address] [address] OPERATIVE REPORT PATIENT: ZAFAR NUNEZ : 1950 MR#: [id number] ADMIT: 03/26/2017 JOB ID: [id number] DATE OF SURGERY: 03/26/2017 SURGEON: Kristan Keller MD. PROCEDURE: 1 Right-sided extracorporeal shock wave lithotripsy and 2 Cystolithalopaxy- 2-3cm stone. 3 right side double-J stent placement. ANESTHESIA: General. PREOPERATIVE DIAGNOSIS(ES): Large right-sided left nephrolithiasis. POSTOPERATIVE DIAGNOSIS(ES): Large right-sided left nephrolithiasis. INDICATIONS: The patient is a 66-year-old woman with longstanding history of MS and recurrent stones on her right side. She had been treated in the past with numerous modalities, most recently shock wave lithotripsy and had, however, considerable residual volume and she was set up by Dr. Robb Springer for repeat ESWL with stent placement. PROCEDURE IN DETAIL: After appropriate informed consent was obtained, the patient was brought to the operating room. She received IV gentamicin prior to onset of the procedure, as well as Levaquin. SCDs were placed. Adequate general anesthesia induced. She was carefully placed in the dorsal lithotomy position. All pressure points were carefully padded. Cleaned, prepped, and draped in the usual sterile fashion. Rigid scope was introduced in the patient's bladder. There was noted to be a considerable amount of stone in her bladder. Some of this had been encrustation from prior Cano catheters. However, it was a good deal of stone with erythematous bladder mucosa. We used an Ellik catheter to irrigate some of this out. We used the flexible grasper to break up these shards into smaller pieces which were could be irrigated out. there was 2-3cm total stone in the bladder. We pulled out several shards with the grasper, and once we had her bladder fairly cleared from stones, we then turned our attention to stent placement. Wire was advanced through the right ureteral orifice up into good position in the kidney where the stone burden was quite easily visible. Scope was withdrawn. Bladder was drained. We advanced a 6-Arabic x 22 cm double-J stent over the wire under fluoroscopic and direct visual guidance into good position with a curl in the renal pelvis and a curl in the patient's bladder. Bladder itself was drained. All of the stone had been irrigated and grasped out of it. We then repositioned the patient carefully in the supine position. All pressure points were carefully padded into the proper position for the shockwave lithotripter head, which was brought in. The stone was easily visible. She was treated with 2500 shocks to a power level of 5 with a pause after 200 shocks, escalating rate, starting at 60 and ultimately 80, then back down to 60. There appeared to be quite good breakup of the stone in the patient's renal pelvis and it was quite difficult to visualize by the end of the case. The patient tolerated the procedure well, was awakened, taken in stable condition to the postanesthesia care unit. KATE
== END 2017-03-26 23:59 | disposition home or self-care (01) ==
LOC: SAS 07:21
PROVIDERS: ATTEND Urology
DX: N20.0 Calculus of kidney (principal); N21.0 Calculus in bladder; G35 Multiple sclerosis; N39.41 Urge incontinence; N31.9 Neuromuscular dysfunction of bladder, unspecified; Z87.440 Personal history of urinary (tract) infections; Z99.3 Dependence on wheelchair
CPT/HCPCS: 50590; 52318; 52332; 74000; C2617; J1100; J2370; J2405; J3010; J7120